=== PATIENT | female | born 1995 | race Caucasian/White ===

== ENCOUNTER 2017-10-01 21:04 | Emergency (ER) | payer MEDICAID ==
[~2017-10-01] VITALS: Ht 152.4 cm; Wt 59.4 kg
[2017-10-01 21:05] VITALS: Ht 152.4 cm; Wt 59.4 kg
[2017-10-01 21:52] LABS: PLATELET COUNT 356 x10^3mcL (130-400)
[2017-10-01 21:53] LABS: BASOPHIL % 3.7 % (0-2)
[2017-10-01 21:53] LABS: microscopic required? YES; urine erythrocyte 3+ (NEGATIVE)
[2017-10-01 22:37] VITALS: BP 158/71
== END 2017-10-01 23:11 | disposition home or self-care (01) ==
LOC: ED 21:04
PROVIDERS: Emergency Medicine
DX: O03.9 Complete or unspecified spontaneous abortion without complication (principal); Z3A.01 Less than 8 weeks gestation of pregnancy
CPT/HCPCS: 36415

== ENCOUNTER 2017-10-04 15:31 | Emergency (ER) | payer MEDICAID ==
[~2017-10-04] VITALS: Ht 152.4 cm; Wt 59.0 kg
[2017-10-04 19:50] VITALS: BP 106/55
== END 2017-10-04 19:50 | disposition home or self-care (01) ==
LOC: ED 15:31
DX: O03.9 Complete or unspecified spontaneous abortion without complication (principal)
CPT/HCPCS: 36415